=== PATIENT | male | born 1960 | race Caucasian/White ===

== ENCOUNTER 2019-03-31 17:39 | Emergency (ER) | payer MEDICAID ==
[~2019-03-31] VITALS: Ht 172.7 cm; Wt 108.9 kg
[2019-03-31 17:48] VITALS: BP_SYST 148
--- NOTE | 2019-03-31 17:54 | NUR ---
Patient triaged and placed in waiting room. VSS and patient appears in no acute distress at this time. Accompanied by , awaiting available bed, and MD notified of need for MSE.
--- NOTE | 2019-03-31 20:00 | NUR ---
Pt placed to ER chair 1. Pt c/o non productive cough with chest and nasal congestion x 2 days. Denies c/o N/V/D, afebrile.
--- NOTE | 2019-03-31 20:05 | NUR ---
Melissa Mack performing MSE.
[2019-03-31 21:05] VITALS: BP_SYST 128
--- NOTE | 2019-03-31 21:05 | NUR ---
Patient given written and verbal discharge instructions and verbalizes understanding. ER MD discussed with patient the results and treatment provided. Patient in stable condition. ID arm band removed. IV catheter removed intact and dressing applied, no active bleeding. Rx of Medrol Dosepak, Promethizine DM, Azithromycin, Tamiflu, and Albuterol given. Patient educated on pain management and to follow up with PMD. Pain Scale 0/10. Opportunity for questions provided and answered. Medication side effect fact sheet provided.
== END 2019-03-31 21:05 | disposition home or self-care (01) ==
LOC: SED 17:39
DX: J06.9 Acute upper respiratory infection, unspecified (principal); R03.0 Elevated blood-pressure reading, without diagnosis of hypertension; G47.00 Insomnia, unspecified; K21.9 Gastro-esophageal reflux disease without esophagitis; Z20.828 Contact with and (suspected) exposure to other viral communicable diseases; Z87.891 Personal history of nicotine dependence
CPT/HCPCS: 36415; 86710; 99283

== ENCOUNTER 2021-01-25 14:11 | Emergency (ER) | payer MEDICAID, SELFPAY ==
[~2021-01-25] VITALS: Ht 172.7 cm; Wt 105.2 kg
[2021-01-25 14:11] VITALS: BP_SYST 138
[2021-01-25] MEDS ORDERED: ZINC50TA69 PO (14:31)
[2021-01-25] MEDS ORDERED: DEC4 PO (14:31)
== END 2021-01-25 14:42 | disposition home or self-care (01) ==
LOC: SED 14:11
DX: U07.1 COVID-19 (principal); K21.9 Gastro-esophageal reflux disease without esophagitis; Z79.899 Other long term (current) drug therapy
CPT/HCPCS: 99283